=== PATIENT | male | born 1950 | race Caucasian/White ===

== ENCOUNTER 2021-06-03 09:39 | Outpatient (CLI) | payer MEDICARE ==
[2021-06-03 23:40] LABS: SARS-CoV-2 PCR by NAA Not Detected (NotDetected)
== END 2021-06-03 09:40 | disposition home or self-care (01) ==
LOC: CSHLAB 09:39
PROVIDERS: ATTEND Family Medicine
DX: Z20.822 Contact with and (suspected) exposure to COVID-19 (principal)
CPT/HCPCS: U0003; U0005

== ENCOUNTER 2021-06-07 07:33 | Day surgery (SDC) | payer MEDICARE ==
[2021-06-03 14:06] VITALS: BMI 29.0
[2021-06-07] MEDS ORDERED: PROPOFOL 40 ML ONE (09:06)
[2021-06-07] MEDS ORDERED: Lidocaine 1% PF 5 ML VIAL ONE (09:07)
== END 2021-06-07 10:48 | disposition home or self-care (01) ==
LOC: CSHSDC 07:33
PROVIDERS: ATTEND Internal Medicine Gastroenterology
PROC: 0DJD8ZZ Inspection of Lower Intestinal Tract, Via Natural or Artificial Opening Endoscopic (ICD-10-PCS; principal; 2021-06-07)
DX: Z12.11 Encounter for screening for malignant neoplasm of colon (principal); Z86.010 Personal history of colon polyps; I10 Essential (primary) hypertension; E78.5 Hyperlipidemia, unspecified; N40.0 Benign prostatic hyperplasia without lower urinary tract symptoms; F32.9 Major depressive disorder, single episode, unspecified
CPT/HCPCS: J2704

== ENCOUNTER 2024-09-06 11:41 | Emergency (ER) | payer MEDICARE | END 2024-09-06 15:02 | disposition home or self-care (01) | LOC: CSHERS 11:41 | DX: M71.22 Synovial cyst of popliteal space [Baker], left knee (principal); I10 Essential (primary) hypertension; Z87.891 Personal history of nicotine dependence ==